=== PATIENT | female | born 2000 | race African-American/Black ===

== ENCOUNTER 2021-01-23 13:22 | Emergency (ER) | payer BC ==
[~2021-01-23] VITALS: Ht 160 cm; Wt 97.7 kg
[2021-01-23] MEDS ORDERED: NS 1,000 ML IV ONE (13:30)
[2021-01-23] MEDS ORDERED: METOCLOPRAMIDE INJ 10MG/2ML VIAL (J2765 PER 1) IV ONE (13:30)
[2021-01-23 13:45] LABS: BASO % 0.4 % (0.0-1.0); EOS % 0.3 % (0.0-3.0); HEMATOCRIT 41.9 % (36.0-47.0); HEMOGLOBIN 13.7 g/dl (12.0-15.5); LYMPH # 2.2 10^3/uL (1.5-5.0); LYMPH % 21.3 % (24.0-44.0); MEAN CORPUSCULAR HEMOGLOBIN 30.9 pg (27.0-33.0); MEAN CORPUSCULAR HGB CONC 32.7 g/dl (32.0-36.5); MEAN CORPUSCULAR VOLUME 94.4 fl (80.0-96.0); MONO # 0.8 10^3/uL (0.0-0.8); MONO % 7.5 % (2.0-8.0); NEUTROPHILS # 7.1 10^3/uL (1.5-8.5); PLATELET COUNT, AUTOMATED 327 10^3/uL (150-450); RED BLOOD COUNT 4.44 10^6/uL (4.00-5.40); WHITE BLOOD COUNT 10.1 10^3/uL (4.0-10.0)
[2021-01-23 14:11] LABS: ALBUMIN 3.6 GM/DL (3.2-5.2); ALT/SGPT 20 U/L (12-78); BILIRUBIN,DIRECT 0.2 MG/DL (0.0-0.2); BILIRUBIN,TOTAL 0.4 MG/DL (0.2-1.0); LIPASE 57 U/L (73-393); TOTAL PROTEIN 7.3 GM/DL (6.4-8.2)
[2021-01-23 14:14] LABS: HCG, SERUM QUALITATIVE NEGATIVE (NEGATIVE)
[2021-01-23 15:07] VITALS: BP 107/71
[2021-01-23] MEDS ORDERED: REGL10TA6 PO (15:07)
== END 2021-01-23 15:17 | disposition home or self-care (01) ==
LOC: M ED 13:22 → EDBD 13:22 → M ED 15:17
DX: R19.7 Diarrhea, unspecified (principal)
CPT/HCPCS: 80047; 80076; 83690; 84703; 85025; 93041; 96361; 96374; 99284; J2765